=== PATIENT | female | born 1965 | race Caucasian/White ===

== ENCOUNTER → 2017-02-19 | Outpatient (CLI) | payer OTHER ==
[2016-09-27 11:17] VITALS: BP 184/69
[~2017-02-19] MED LIST: ASPI81TA9 PO; CARV3.12 PO; PRAV10TA2 PO; TRAM50TA PO
[2017-02-20 03:08] LABS: THYROXINE 9.7 ug/dL (4.5-12.0)
[2017-02-20 06:12] LABS: ESTRADIOL LEVEL 6.7 pg/mL (.); FSH 23.4 mIU/mL (.); LUTEINIZING HORMONE 13.4 mIU/mL (.)
[2017-02-20 14:26] LABS: FREE T4 1.2 ng/dL (0.76-1.46); THYROID STIM HORMONE (TSH) 1.078 uIU/mL (0.358-3.740)
== END | disposition home or self-care (01) ==
LOC: LAB 16:54
PROVIDERS: ATTEND Obstetrics & Gynecology
DX: E34.9 Endocrine disorder, unspecified (principal)
CPT/HCPCS: 36415; 82670; 83001; 83002; 84436; 84439; 84443; 84480

== ENCOUNTER 2017-04-04 01:41 | Emergency (ER) | payer OTHER ==
[~2017-04-04] VITALS: Ht 165.1 cm; Wt 184.6 kg
[~2017-04-04 01:41] MED LIST changes: +ASPI-612 PO; -ASPI81TA9 PO
[2017-04-04] MEDS ORDERED: DOXY100T PO (02:38)
[2017-04-04] MEDS ORDERED: HYDR-971 PO (02:38)
--- NOTE | 2017-04-04 02:40 | PHYS DOC ---
General Chief Complaint: rash Stated Complaint: INSECT BITE ON STOMACH Time Seen by MD: 01:42 Source: patient Exam Limitations: no limitations Problems: History of Present Illness Initial Comments Pt is 51/F to ED c/o brown recluse bite. Pt states she noted "pimple" itchy/red on right abdomen [address] Gan yesterday due to increased redness and scabbing over initial "pimple" and pt states Dr Gan dx brown recluse spider bite. Labs drawn yesterday by Dr Gan , pt has f/u there 2:30 today for results/further evaluation. Pt came in tonight because rash is hurting, some has spread outside line drawn yesterday by Dr Gan. Other than pain no fever/chills/malaise/myalgias/n/v. No ticks or spiders seen. Td status unknown. Timing/Duration: getting worse (3 days) Severity: moderate Modifying Factors: worse with movement, improves with rest Associated Symptoms: rash, other Allergies: Coded Allergies: No Known Allergies (Verified Allergy, Unknown, 02/23/14) Past Medical History Medical History: other (HTN, HLP, GERD, VIOLA, morbid obesity) Surgical History: noncontributory (munira, CS, appy, EGD) Social History Smoker: quit greater than 1 year Alcohol: none Drugs: none Review of Systems Constitutional: denies chills, denies diaphoresis, denies fever, denies malaise Respiratory: denies cough, denies shortness of breath Cardiovascular: denies chest pain, denies palpitations Gastrointestinal: denies diarrhea, denies nausea, denies vomiting Genitourinary: denies frequency, denies hematuria Musculoskeletal: see HPI, denies back pain, denies joint swelling, denies neck pain Skin: see HPI Psychiatric/Neurological: denies headache, denies numbness, denies paresthesia Physical Exam General Appearance: no apparent distress, obese Ear, Nose, Throat: normal ENT inspection, normal pharynx Neck: non-tender, supple Respiratory: normal breath sounds, no respiratory distress Cardiovascular: normal peripheral pulses, regular rate, rhythm Gastrointestinal: normal bowel sounds, non tender, soft Back: no CVA tenderness, no vertebral tenderness Extremities: non-tender, normal inspection 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 Abx initiated. Pt to f/u Dr Gan today. Departure Time of Disposition: 02:38 Disposition: 01 HOME, SELF-CARE Diagnosis: cellulitis right abdomen Condition: GOOD Patient Instructions: Brown Recluse Spider Bite, [id number], Cellulitis, Easy -to-Read, MRSA Infection, Infant, [id number] Additional Instructions: Please review the patient education materials. I've included information on MRSA (staph) as well as brown recluse bites. Rx: norco 5mg #14, doxycycline Take medications with food. Follow up with Dr Gan today at 2:30 pm as scheduled for recheck. Return to ED with new or changing symptoms. ALFA VAN DO April 04, 2017 02:40
[2017-04-04] MEDS ORDERED: ONDANSETRON ODT 4 MG TAB.RAPDIS PO ONE (03:00)
[2017-04-04] MEDS ORDERED: DOXYCYCLINE HYCLATE 100 MG TABLET PO ONE (03:00)
[2017-04-04] MEDS ORDERED: DIPHTH,PERTUSS(ACELL),TET TOX 0.5 ML DISP.SYRIN. VAX IM ONE (03:00)
[2017-04-04] MEDS ORDERED: MORPHINE SULFATE 10 MG/ML SYRINGE. IM ONE (03:00)
[2017-04-04 03:15] VITALS: BP 130/68
== END 2017-04-04 03:20 | disposition home or self-care (01) ==
LOC: ER 01:41
DX: L03.311 Cellulitis of abdominal wall (principal); I10 Essential (primary) hypertension; E78.5 Hyperlipidemia, unspecified; K21.9 Gastro-esophageal reflux disease without esophagitis; G47.33 Obstructive sleep apnea (adult) (pediatric); E66.01 Morbid (severe) obesity due to excess calories; Z87.891 Personal history of nicotine dependence
CPT/HCPCS: 90471; 90715; 96372; 99284; J2270; Q0162

== ENCOUNTER → 2017-09-29 | Outpatient (CLI) | payer OTHER ==
[~2017-09-29] MED LIST changes: +DOXY100T PO; +HYDR-971 PO
--- NOTE | 2017-09-29 15:44 | RAD ---
DATE: September 29, 2017 EXAM: DIGITAL DIAGNOSTIC BILATERAL HISTORY: Right lateral breast pain. Annual screening of left breast. COMPARISON: March 08, 2011 TECHNIQUE: CC and MLO views of each breast were obtained. All views were repeated to include more breast tissue. The right CC view was repeated twice, there are 9 images total This study was interpreted with the benefit of Computerized Aided Detection (CAD). FINDINGS: The breast parenchyma demonstrates scattered fibroglandular densities, category B. Two probable parenchymal lymph nodes in the upper outer right breast are stable. There is no worrisome mass or area of architectural distortion. There are a few scattered benign calcifications. IMPRESSION: Stable mammogram with benign findings. BI-RADS CATEGORY: 2 BENIGN FINDING RECOMMENDED FOLLOW-UP: 12M 12 MONTH FOLLOW-UP . Recommend clinical discussion/follow-up for this patient's unexplained breast pain. PQRS compliance statement: Patient information was entered into a reminder system with a target due date for the next mammogram. Mammography is a sensitive method for finding small breast cancers, but it does not detect them all and is not a substitute for careful clinical examination. A negative mammogram does not negate a clinically suspicious finding and should not result in delay in biopsying a clinically suspicious abnormality. "Our facility is accredited by the [employer] Mammography Program."
== END | disposition home or self-care (01) ==
LOC: MAMMO 14:51
PROVIDERS: ATTEND Obstetrics & Gynecology
DX: N64.4 Mastodynia (principal); R92.1 Mammographic calcification found on diagnostic imaging of breast; Z72.89 Other problems related to lifestyle
CPT/HCPCS: G0204; 77066

== ENCOUNTER 2018-01-30 23:58 | Observation (INO) | payer OTHER ==
[~2018-01-30] VITALS: Ht 162.6 cm; Wt 177.9 kg
--- NOTE | 2018-01-31 00:06 | ED.ADGEN ---
Past History Past Medical History: Anxiety, GERD, High Cholesterol, Hypertension, Other Past Surgical History: Appendectomy, Cholecystectomy, Smoking: Non-smoker Alcohol Use: None Drug Use: None Adult General Chief Complaint Chief Complaint " .. I ve been having off and on chest pain for the past couple weeks.. but it been constant the past several days... and worse tonight... I do have angina... and I have seen Dr. Kay at [facility]... " HPI HPI Patient is a 52 year old female who presents with above hx and complaints of centralized chest pain which is nonradiating.. Patient describes it as a squeezing heavy feeling. Nothing she does seems to make it better tonight. Pt. rates pain as 8/10. Patient does not smoke. Patient denies any drug use. Patient denies any trauma or ill contacts. Patient does have a history of hypertension. Patient does have a history of morbid obesity. There is a strong family history of [place] with early onset and family members brother and father. Brother at age 49 due to [place]. Patient's primary care is Dr. Gan. Review of Systems Review of Systems Constitutional: Denies fever or chills [] Eyes: Denies change in visual acuity, redness, or eye pain [] HENT: Denies nasal congestion or sore throat [] Respiratory: Denies cough or shortness of breath [] Cardiovascular: No additional information not addressed in HPI [] GI: Denies abdominal pain, nausea, vomiting, bloody stools or diarrhea [] : Denies dysuria or hematuria [] Musculoskeletal: Denies back pain or joint pain [] Integument: Denies rash or skin lesions [] Neurologic: Denies headache, focal weakness or sensory changes [] Endocrine: Denies polyuria or polydipsia [] All other systems were reviewed and found to be within normal limits, except as documented in this note. Family History Family History Early onset coronary artery disease father and brother Current Medications Current Medications Current Medications Medications (Trade) Dose Ordered Sig/Cruz Start Time Stop Time Status Last Admin Dose Admin Sodium Chloride 1,000 ml @ 100 mls/hr Q10H 01/31/18 00:27 01/31/18 10:26 01/31/18 01:58 100 MLS/HR See nursing for home meds Allergies Allergies Allergies Coded Allergies Type Severity Reaction Last Updated Verified No Known Allergies Allergy Unknown 02/23/14 Yes Physical Exam Physical Exam Constitutional: Moderately acute distress, non-toxic appearance. [] HENT: Normocephalic, atraumatic, bilateral external ears normal, oropharynx moist, no oral exudates, nose normal. [] Eyes: PERRLA, EOMI, conjunctiva normal, no discharge. [] Neck: Normal range of motion, no tenderness, supple, no stridor. [] Cardiovascular:Heart rate regular rhythm, no murmur [] Lungs & Thorax: Bilateral breath sounds equal at apexes on auscultation [] Abdomen: Bowel sounds normal, soft, no tenderness, no masses, no pulsatile masses. Morbidly obese. Old surgery scars. Skin: Warm, dry, no erythema, no rash. [] Back: No tenderness, no CVA tenderness. [] Extremities: No tenderness, no cyanosis, no clubbing, ROM intact, ankle edema. [ ] No cording appreciated. Neurologic: Alert and oriented X 3, normal motor function, normal sensory function, no focal deficits noted. [] Psychologic: Affect anxious, judgement normal, mood normal. [] EKG EKG My interpretation EKG shows a sinus rhythm at 82 bpm. No findings acute STEMI with contralateral changes[] Radiology/Procedures Radiology/Procedures My interpretation of chest x-ray shows no free air under the diaphragm. Borderline cardiomegaly. No large pulmonary infiltrate.[] Course & Med Decision Making Course & Med Decision Making Pertinent Labs and Imaging studies reviewed. (See chart for details). Discussed presentation, testing and treatment plan with Dr. Amato. Will admit for further eval. and cardiology consult. [] Final Impression Final Impression 1. Chest pain 2. Accelerated hypertension 3. Morbid obesity[] 4. Problems: Dragon Disclaimer Dragon Disclaimer This electronic medical record was generated, in whole or in part, using a voice recognition dictation system. NICK GALVEZ MD Jan 31, 2018 00:06
[2018-01-31] MEDS ORDERED: IV NORMAL SALINE 1,000ML 1,000 ML IV SCH (00:27)
[2018-01-31] MEDS ORDERED: NITROGLYCERIN OINT 1 GM PACKET. TP ONE (01:00)
[2018-01-31] MEDS ORDERED: ASPIRIN 325 MG TABLET PO ONE (01:00)
[2018-01-31] MEDS ORDERED: MORPHINE SULFATE 10 MG/ML SYRINGE. SQ ONE (01:00)
[2018-01-31] MEDS ORDERED: ENOXAPARIN ** NOTE DOSE ** SYRINGE SQ ONE (01:30)
[2018-01-31 02:14] LABS: BASO # 0.1 x10^3/uL (0.0-0.2); BASO % 1 % (0-3); EOS # 0.2 x10^3/uL (0.0-0.7); EOS % 3 % (0-3); HEMATOCRIT 43.1 % (36.0-47.0); HEMOGLOBIN 14.6 g/dL (12.0-15.5); LYMPH # 2.1 x10^3/uL (1.0-4.8); LYMPH % 26 % (24-48); MEAN CORPUSCULAR HEMOGLOBIN 30 pg (25-35); MEAN CORPUSCULAR HGB CONC 34 g/dL (31-37); MEAN CORPUSCULAR VOLUME 89 fL (79-100); MONO # 0.4 x10^3/uL (0.0-1.1); MONO % 5 % (0-9); NEUT # 5.3 x10^3uL (1.8-7.7); NEUT % 65 % (31-73); PLATELET COUNT 308 x10^3/uL (140-400); RED BLOOD COUNT 4.84 x10^6/uL (3.50-5.40); RED CELL DISTRIBUTION WIDTH 13.6 % (11.5-14.5); WHITE BLOOD COUNT 8.2 x10^3/uL (4.0-11.0)
[2018-01-31 02:17] LABS: BARBITURATES NEG (NEG); BENZODIAZEPINES NEG (NEG); CANNABINOIDS NEG (NEG); COCAINE NEG (NEG); METHADONE NEG (NEG); OPIATES NEG (NEG); PHENCYCLIDINE NEG (NEG)
[2018-01-31 02:19] LABS: BILIRUBIN,URINE NEG (NEG); CLARITY,URINE CLEAR; COLOR,URINE STRAW; GLUCOSE,URINE NEG (NEG)
[2018-01-31 02:20] LABS: BACTERIA,URINE FEW /HPF (0-FEW); NITRITE,URINE NEG (NEG); RBC,URINE OCC /HPF (0-2); SQUAMOUS EPITHELIAL CELL,UR FEW /LPF; UROBILINOGEN,URINE 0.2 mg/dL (0.2 mg/dL); WBC,URINE 0 /HPF (0-4)
[2018-01-31] MEDS ORDERED: OMEP40CA5 PO (02:29)
[2018-01-31] MEDS ORDERED: SERT25TA4 PO (02:29)
[2018-01-31] MEDS ORDERED: LISI40TA PO (02:29)
[2018-01-31 02:31] LABS: AMPHETAMINE/METHAMPHETAMINE NEG (NEG)
[2018-01-31 02:50] LABS: ALBUMIN 3.5 g/dL (3.4-5.0); ALK PHOS 91 U/L (46-116); ALT (SGPT) 28 U/L (14-59); ANION GAP 9 (6-14); AST (SGOT) 21 U/L (15-37); BLOOD UREA NITROGEN 12 mg/dL (7-20); CALCIUM 8.9 mg/dL (8.5-10.1); CARBON DIOXIDE 28 mmol/L (21-32); CHLORIDE 102 mmol/L (98-107); CREATININE 0.9 mg/dL (0.6-1.0); DIRECT BILIRUBIN 0.1 mg/dL (0.0-0.2); GFR 65.5; GLUCOSE 106 mg/dL (70-99); LIPASE 154 U/L (73-393); SODIUM 139 mmol/L (136-145); TOTAL BILIRUBIN 0.3 mg/dL (0.2-1.0); TOTAL PROTEIN 7.9 g/dL (6.4-8.2)
[2018-01-31] MEDS ORDERED: MORPHINE SULFATE 2 MG/ML DISP.SYRIN. IV PRN (03:00)
[2018-01-31] MEDS ORDERED: ONDANSETRON PF 4 MG/2 ML VIAL. IV PRN (03:00)
[2018-01-31 03:05] VITALS: BP 159/93
[2018-01-31] MEDS ORDERED: ANTI-COAG MONITOR BY PHARMACY. MC PRN (03:15)
[2018-01-31] MEDS ORDERED: CARV3.122 PO (05:04)
[2018-01-31] MEDS: NITROGLYCERIN OINT 1 GM PACKET. TP SCH ×2 (05:14→14:00)
[2018-01-31] MEDS ORDERED: traMADol 50 MG TABLET PO PRN (05:15)
[2018-01-31 05:31] VITALS: BP 98/59
--- NOTE | 2018-01-31 05:46 | EKG ---
[address] [address] Test Date: 2018-01-31 Test Time: 00:21:13 Pat Name: IVELISSE PADILLA Department: Room: Gender: F General Office Dispatcher: HAIDER : 1965 Requested By: NICK GALVEZ Order Number: [id number] Reading MD: Measurements Intervals [place] Rate: 82 P: 26 HI: 184 QRS: 47 QRSD: 84 T: 29 QT: 376 QTc: 442 Interpretive Statements SINUS RHYTHM NO SPECIFIC ECG ABNORMALITIES RI6.01 No previous ECG available for comparison
[2018-01-31] MEDS ORDERED: ACET325T9 PO (06:37)
[2018-01-31] MEDS ORDERED: ASPI1TAB31 PO (06:37)
[2018-01-31] MEDS ORDERED: ACETAMINOPHEN 325 MG TABLET PO PRN (06:45)
[2018-01-31] MEDS ORDERED: PANTOPRAZOLE 40 MG TABLET. PO SCH (07:30)
[2018-01-31] MEDS ORDERED: SERTRALINE 25 MG TABLET. PO SCH (08:00)
[2018-01-31] MEDS ORDERED: ASPIRIN 81 MG TAB.CHEW PO SCH (08:00)
[2018-01-31] MEDS ORDERED: CARVEDILOL 3.125 MG TABLET PO SCH (08:00)
[2018-01-31] MEDS ORDERED: LISINOPRIL 20 MG TABLET PO SCH (08:00)
--- NOTE | 2018-01-31 08:30 | RAD ---
Indication: Chest pain and pressure for one week. Technique: Portable AP upright chest x-ray Comparison: Previous study from 09/26/2016. Findings: Heart is normal in size. Lungs are clear. Stable calcified granuloma projecting over the left lower lung zone. No pneumothorax or pleural effusion. Visualized bony thorax is within normal limits. Impression: No acute cardiopulmonary process.
[2018-01-31] MEDS ORDERED: NYSTATIN TOPICAL POWDER 30GM BOTTLE. TP SCH (09:00)
[2018-01-31] MEDS ORDERED: ASPIRIN ENTERIC COATED 81 MG TABLET.DR. PO SCH (09:00)
[2018-01-31] MEDS ORDERED: ENOXAPARIN ** NOTE DOSE ** SYRINGE SQ SCH (09:00)
[2018-01-31 10:57] LABS: THYROID STIM HORMONE (TSH) 1.33 uIU/mL (0.358-3.740)
[2018-01-31 11:33] VITALS: BP 116/72
--- NOTE | 2018-01-31 14:47 | PDOC2 ---
CARDIAC CONSULT DATE OF CONSULT Date Of Consult DATE: 01/31/18 TIME: 14:39 REASON FOR CONSULT Reason for Consult Chest pain REFERRING PHYSICIAN Referring Physician Dr. Amato SOURCE Source: Patient HPI History of Present Illness The patient is a 52-year-old female who presented to the emergency room with chief complaints of episodic periods of chest pressure over the past several weeks. The patient's initial EKG was a sinus rhythm with no ischemic changes. Troponins have been normal 2. She is feeling much better this morning her pain has resolved. The patient has reported history of hyperlipidemia and is on pravastatin 10 mg a day but her LDL is severely elevated at 199 with an HDL of 59. Additionally she weighs 392 pounds and has a history of gastroesophageal reflux disease for which she is treated with omeprazole. Overall she reports feeling much better this morning. PAST MEDICAL HISTORY Cardiovascular: HTN, hyperipidemia GI: GERD PAST SURGICAL HISTORY Past Surgical History: Appendectomy, Cholecystectomy, FAMILY HISTORY Family History: Coronary Artery Disease SOCIAL HISTORY Smoke: No ALCOHOL: none CURRENT MEDICATIONS Current Medications Current Medications Sodium Chloride 1,000 ml @ 100 mls/hr Q10H IV Last administered on 01/31/18at 01:58; Start 01/31/18 at 00:27; Stop 01/31/18 at 10:26; Status DC Nitroglycerin (Nitro-Bid Oint) 1 inch 1X ONCE TP Last administered on at 01:58; Start 01/31/18 at 01:00; Stop 01/31/18 at 01:01; Status DC Aspirin (Alec Aspirin) 325 mg 1X ONCE PO Last administered on 01/31/18at 01:58 ; Start 01/31/18 at 01:00; Stop 01/31/18 at 01:01; Status DC Morphine Sulfate (Morphine 10mg Syringe) 10 mg 1X ONCE SQ Last administered on 01/31/18at 01:58; Start 01/31/18 at 01:00; Stop 01/31/18 at 01:01; Status DC Enoxaparin Sodium (Lovenox 150mg Syringe) 150 mg 1X ONCE SQ Last administered on 01/31/18at 01:57; Start 01/31/18 at 01:30; Stop 01/31/18 at 01:31; Status DC Ondansetron HCl (Zofran) 4 mg PRN Q4HRS PRN IV NAUSEA/VOMITING; Start 01/31/18 at 03:00; Stop 02/01/18 at 02:59 Morphine Sulfate (Morphine 2mg Syringe) 2 mg PRN Q2HR PRN IV PAIN; Start at 03:00; Stop 02/01/18 at 02:59 Enoxaparin Sodium (Lovenox 150mg Syringe) 150 mg Q12HR SQ Last administered on 01/31/18at 08:56; Start 01/31/18 at 09:00 Aspirin (Children'S Aspirin) 81 mg DAILYWBKFT PO ; Start 01/31/18 at 08:00 Nitroglycerin (Nitro-Bid Oint) 1 inch Q8HRS TP ; Start 01/31/18 at 06:00 Info (Anti-Coagulation Monitoring By Pharmacy) 1 each PRN DAILY PRN MC SEE COMMENTS; Start 01/31/18 at 03:15 Aspirin (Aspirin Enteric Coated) 81 mg DAILY PO Last administered on 01/31/18at 08:58; Start 01/31/18 at 09:00 Carvedilol (Coreg) 3.125 mg BIDWMEALS PO Last administered on 01/31/18at 08:58; Start 01/31/18 at 08:00 Sertraline HCl (Zoloft) 25 mg DAILY08 PO Last administered on 01/31/18at 08:58; Start 01/31/18 at 08:00 Tramadol HCl (Ultram) 50 mg PRN Q6HRS PRN PO MODERATE PAIN; Start 01/31/18 at 05:15 Lisinopril (Prinivil) 40 mg DAILY08 PO Last administered on 01/31/18at 08:58; Start 01/31/18 at 08:00 Pantoprazole Sodium (Protonix) 40 mg DAILYAC PO Last administered on 01/31/18at 08:58; Start 01/31/18 at 07:30 Atorvastatin Calcium (Lipitor) 5 mg QHS PO ; Start 01/31/18 at 21:00 Nystatin (Nystop) 1 ming BID TP Last administered on 01/31/18at 08:57; Start at 09:00 Acetaminophen (Tylenol) 650 mg PRN Q6HRS PRN PO HEADACHE Last administered on at 07:03; Start 01/31/18 at 06:45 Active Scripts Active Reported Tylenol (Acetaminophen) 325 Mg Tablet 650 Mg PO Q6HRS PRN Lisinopril 40 Mg Tablet 40 Mg PO DAILY08 Sertraline Hcl 25 Mg Tablet 25 Mg PO DAILY08 Omeprazole 40 Mg Capsule.dr 40 Mg PO DAILY08 Aspirin Ec (Aspirin) 81 Mg Tablet.dr 81 Mg PO DAILY Coreg (Carvedilol) 3.125 Mg Tablet 3.125 Mg PO BIDWMEALS Pravastatin Sodium 10 Mg Tablet 1 Tab PO QHS Tramadol Hcl (Tramadol HCl) 50 Mg Tablet 50 Mg PO PRN Q6HRS ALLERGIES Allergies: Coded Allergies: No Known Allergies (Verified Allergy, Unknown, 02/23/14) ROS General: YES: Fatigue Respiratory: YES: SOB with excertion Cardiovascular: yes: Chest Pain PHYSICAL EXAM General: No acute distress HEENT: Atraumatic Lungs: Clear to auscultation Heart: Regular rate Abdomen: Normal bowel sounds VITALS Vital Signs Vital Signs Date Time Temp Pulse Resp B/P (MAP) Pulse Ox O2 Delivery O2 Flow Rate FiO2 01/31/18 11:33 97.4 71 22 116/72 (87) 98 Room Air LABS LABS Laboratory Tests Test 01/31/18 01:45 01/31/18 01:55 01/31/18 06:32 Urine Collection Type Unknown Urine Color Straw Urine Clarity Clear Urine pH 5.0 Urine Specific [place] <=1.005 Urine Protein Neg (NEG-TRACE) Urine Glucose (UA) Neg mg/dL (NEG) Urine Ketones (Stick) Neg mg/dL (NEG) Urine Blood Small (NEG) Urine Nitrite Neg (NEG) Urine Bilirubin Neg (NEG) Urine Urobilinogen Dipstick 0.2 mg/dL (0.2 mg/dL) Urine Leukocyte Esterase Neg (NEG) Urine RBC Occ /HPF (0-2) Urine WBC 0 /HPF (0-4) Urine Squamous Epithelial Cells Few /LPF Urine Bacteria Few /HPF (0-FEW) Urine Opiates Screen Neg (NEG) Urine Methadone Screen Neg (NEG) Urine Barbiturates Neg (NEG) Urine Phencyclidine Screen Neg (NEG) Urine Amphetamine/Methamphetamine Neg (NEG) Urine Benzodiazepines Screen Neg (NEG) Urine Cocaine Screen Neg (NEG) Urine Cannabinoids Screen Neg (NEG) Urine Ethyl Alcohol Neg (NEG) White Blood Count 8.2 x10^3/uL (4.0-11.0) Red Blood Count 4.84 x10^6/uL (3.50-5.40) Hemoglobin 14.6 g/dL (12.0-15.5) Hematocrit 43.1 % (36.0-47.0) Mean Corpuscular Volume 89 fL (79-100) Mean Corpuscular Hemoglobin 30 pg (25-35) Mean Corpuscular Hemoglobin Concent 34 g/dL (31-37) Red Cell Distribution Width 13.6 % (11.5-14.5) Platelet Count 308 x10^3/uL (140-400) Neutrophils (%) (Auto) 65 % (31-73) Lymphocytes (%) (Auto) 26 % (24-48) Monocytes (%) (Auto) 5 % (0-9) Eosinophils (%) (Auto) 3 % (0-3) Basophils (%) (Auto) 1 % (0-3) Neutrophils # (Auto) 5.3 x10^3uL (1.8-7.7) Lymphocytes # (Auto) 2.1 x10^3/uL (1.0-4.8) Monocytes # (Auto) 0.4 x10^3/uL (0.0-1.1) Eosinophils # (Auto) 0.2 x10^3/uL (0.0-0.7) Basophils # (Auto) 0.1 x10^3/uL (0.0-0.2) Prothrombin Time 10.1 SEC (9.4-11.4) Prothromb Time International Ratio 1.0 (0.9-1.1) Activated Partial Thromboplast Time 24 SEC (23-33) D-Dimer (Dilcia) 0.41 mg/L (0.00-0.50) Sodium Level 139 mmol/L (136-145) Potassium Level 4.0 mmol/L (3.5-5.1) Chloride Level 102 mmol/L (98-107) Carbon Dioxide Level 28 mmol/L (21-32) Anion Gap 9 (6-14) Blood Urea Nitrogen 12 mg/dL (7-20) Creatinine 0.9 mg/dL (0.6-1.0) Estimated GFR (Cockcroft-Gault) 65.5 Glucose Level 106 mg/dL (70-99) Calcium Level 8.9 mg/dL (8.5-10.1) Magnesium Level 2.0 mg/dL (1.8-2.4) Total Bilirubin 0.3 mg/dL (0.2-1.0) Direct Bilirubin 0.1 mg/dL (0.0-0.2) Aspartate Amino Transf (AST/SGOT) 21 U/L (15-37) Alanine Aminotransferase (ALT/SGPT) 28 U/L (14-59) Alkaline Phosphatase 91 U/L (46-116) Creatine Kinase 60 U/L (26-192) Creatine Kinase MB (Mass) < 0.5 ng/mL (0.0-3.6) Creatine Kinase MB Relative Index 0.8 % (0-4) Troponin I Quantitative < 0.017 ng/mL (0-0.055) < 0.017 ng/mL (0-0.055) AU-Vtx-F-Type Natriuretic Peptide 36 pg/mL (0-124) Total Protein 7.9 g/dL (6.4-8.2) Albumin 3.5 g/dL (3.4-5.0) Triglycerides Level 193 mg/dL (0-150) Cholesterol Level 296 mg/dL (0-200) LDL Cholesterol, Calculated 199 mg/dL (0-100) VLDL Cholesterol, Calculated 38 mg/dL (0-40) Non-HDL Cholesterol Calculated 237 mg/dL (0-129) HDL Cholesterol 59 mg/dL (40-60) Cholesterol/HDL Ratio 5.0 Lipase 154 U/L (73-393) Thyroid Stimulating Hormone (TSH) 1.330 uIU/mL (0.358-3.740) IMAGES IMAGES Chest x-ray shows no acute changes. EKG EKG EKG showed a sinus rhythm with no ischemic changes. ASSESSMENT/PLAN Assessment/Plan 1. Chest pain. Pain has largely resolved. Troponins have been normal. EKG shows no ischemic changes. In this setting would concentrate on risk factors. Would consider changing pravastatin to Lipitor at high dose at 40-80 mg a day. This may need to be reviewed with the patient's primary physician. With her weight of 392 pounds believe her pain this is most likely secondary to GI etiologies and the patient does have a history of gastroesophageal reflux disease. However would work the patient up as an outpatient with echocardiogram and determine if we can find a systemic able to do a stress test with her weight of approximately 400 pounds. We'll contact the patient by phone next week. 2. Hyperlipidemia. Elevated LDL at 199 as above. Adjustment of statins either in the hospital or through her primary service. 3. Gastroesophageal reflux disease. Continue on omeprazole. 4. Hypertension. Improved. We will continue present medications. 5. Severe morbid obesity. Discussed with the patient. Hopefully outpatient evaluation for weight loss. Thank you for allowing us to participate in the care of your patient. KIT GOODMAN MD Jan 31, 2018 14:47
[2018-01-31] MEDS ORDERED: PRAV40TA2 PO (15:36)
--- NOTE | 2018-01-31 16:37 | SSS ---
ADMIT DATE: 01/31/2018 HISTORY OF PRESENT ILLNESS: The patient is a 52-year-old female patient who basically came to the Emergency Room with chief complaint of chest pain that has been going on for a week now, not precipitated by exertion and not associated with nausea, vomiting, no diaphoresis and basically, she was evaluated in the Emergency Room. She had an EKG, which showed that she was in sinus rhythm with no ischemic changes. Her troponin done twice and that troponin was less than 0.017. She was evaluated by Dr. Eden and decision was made to evaluate her as an outpatient with an echocardiogram and also a stress test possible. PAST MEDICAL HISTORY: Significant for hypertension, hyperlipidemia, gastroesophageal reflux disease, severe osteoarthritis of her knees, hips and lower back. She has also morbid obesity, obstructive sleep apnea. PAST SURGICAL HISTORY: Significant for appendectomy, cholecystectomy, total abdominal hysterectomy and bilateral salpingo-oophorectomy. ALLERGIES: She has no known drug allergies. MEDICATIONS: She is currently on following medications: She is on Tylenol 650 mg every 6 hours, aspirin 81 mg once a day, carvedilol 3.125 mg twice a day with meals, lisinopril 40 mg once a day, omeprazole 40 mg once a day, pravastatin 10 mg at bedtime, sertraline 25 mg daily and tramadol 50 mg every 6 hours as needed. FAMILY HISTORY: Her brother at age of 49 with sudden cardiac after undergoing coronary artery bypass graft surgery. Her father is still alive in his 70s and has coronary artery disease and coronary artery bypass graft surgery. Her mother is still alive in her 70s and seemed to be in relatively good health. SOCIAL HISTORY: She is , has 3 daughters. She is an ex-smoker, quit about 15 years ago. She drinks alcohol occasionally. Does not use drugs. She is currently disabled. REVIEW OF SYSTEMS: As per history of present illness. PHYSICAL EXAMINATION GENERAL: When I examined her, she looked well and was clearly in no apparent respiratory distress, pale, but no jaundice, cyanosis or thyromegaly. No jugular venous distention. No limb edema. VITAL SIGNS: Her heart rate was 79, blood pressure was 158/85, temperature was 97, respiratory rate was 20, and oxygen saturation was 96% on room air. HEENT: Showed normocephalic, atraumatic. NECK: Supple. HEART: Showed normal first and second heart sounds with no gallop, rub or murmur. CHEST: Clear to auscultation. No crepitation or rhonchi. ABDOMEN: Distended, soft, nontender. No guarding or rigidity. No organomegaly. Hernial orifices intact. Bowel sounds normal. NEUROLOGIC: She is awake, alert, responding appropriately. Cranial nerves intact. She moves extremities without difficulty. She ambulates without assistance or assistive devices. LABORATORY DATA: Showed a white cell count of 8200, hemoglobin 14.6, hematocrit 43, MCV 89 and platelet count 208,000. Her prothrombin time was 10.1, INR 1, aPTT was 24. D-dimer was 0.41. Her chemistry showed a serum sodium 139, potassium 4, chloride 102, bicarbonate 28, anion gap of 9, BUN 12, creatinine 0.9, estimated GFR was 66 mL per minute. Glucose 106, calcium was 8.9, magnesium 2. Total bilirubin, AST, ALT, alkaline phosphatase were normal. Total protein was 7.9. Albumin was 3.5. She has 2 sets of cardiac enzymes that showed troponin to be less than 0.017, serum triglycerides were 193, total cholesterol 296, LDL was 199, VLDL was 38, and HDL cholesterol was 59, the ratio was 5. Serum lipase was 154 and TSH was 1.330. Urinalysis was unremarkable and toxicology screen was negative. Her chest x-ray showed the heart is normal size. Lungs are clear. Stable calcified granulomas projecting over the left lower lung zone, no pneumothorax or pleural effusion, visualized bony thoraxes are within normal limits. ASSESSMENT AND PLAN: The patient was evaluated by Dr. Eden and basically he recommended evaluating the patient as an outpatient with an echocardiogram and possible stress test and will arrange for also possibility of a nuclear stress test. FINAL DISCHARGE DIAGNOSES: 1. Chest pain, likely due to gastroesophageal reflux disease. 2. Hyperlipidemia. 3. Gastroesophageal reflux disease. 4. Hypertension. 5. Severe morbid obesity with severe advanced degenerative joint disease. CULLEN OVIEDO MD DR: SP/jessica JOB#: [id number] / [id number]
[2018-01-31] MEDS ORDERED: ATORVASTATIN CALCIUM 10 MG TABLET. PO SCH (21:00)
== END 2018-01-31 16:45 | disposition home or self-care (01) ==
LOC: ER 23:58 → UNDOADMIN 01-31 00:50 → INTOOBSV 01-31 00:50 → 1 SOUTH 01-31 00:50
PROVIDERS: ADMIT Internal Medicine; ATTEND Internal Medicine
DX: R07.89 Other chest pain (principal); I10 Essential (primary) hypertension; E78.5 Hyperlipidemia, unspecified; K21.9 Gastro-esophageal reflux disease without esophagitis; E66.01 Morbid (severe) obesity due to excess calories; E78.00 Pure hypercholesterolemia, unspecified; F10.10 Alcohol abuse, uncomplicated; M19.90 Unspecified osteoarthritis, unspecified site; M17.10 Unilateral primary osteoarthritis, unspecified knee; G47.33 Obstructive sleep apnea (adult) (pediatric); Z87.891 Personal history of nicotine dependence; Z82.49 Family history of ischemic heart disease and other diseases of the circulatory system
CPT/HCPCS: 36415; 71045; 80048; 80061; 80076; 80307; 81001; 82553; 83690; 83735; 83880; 84443; 84484; 85025; 85379; 85610; 85730; 93005; 96360; 96361; 96372; 99285; G0378; J1650; J2270; G0379; G0479; J7030

== ENCOUNTER → 2018-02-17 | Outpatient (CLI) | payer OTHER ==
[2018-01-31 11:33] VITALS: BP 116/72
[~2018-02-17] MED LIST changes: +ACET325T9 PO; +ASPI1TAB31 PO; +CARV3.122 PO; +LISI40TA PO; +OMEP40CA5 PO; +PRAV40TA2 PO; +SERT25TA4 PO
--- NOTE | 2018-02-17 16:21 | CARD ---
MR#: [id number] Date of Study: 02/17/2018 Ordering Physician: CHICA العراقي, Referring Physician: CHICA العراقي, Tech: CHIVO Gallego APPROVED REPORT EXAM: Two-dimensional and M-mode echocardiogram with Doppler and color Doppler. Other Information Quality : Technically Limited Technically limited study due to body habitus. INDICATION Chest Pain 2D DIMENSIONS Left Atrium(2D)4.5 (1.6-4.0cm)Aortic Root(2D)3.0 (2.0-3.7cm) M-Mode DIMENSIONS IVSd1.20 (0.7-1.1cm)LVDd4.10 (4.0-5.6cm) PWd1.30 (0.7-1.1cm)LVDs2.70 (2.0-3.8cm) Aortic Valve AoV Peak Santiago.183.6cm/Brianda Peak GR.13.5mmHg LVOT Peak Santiago.97.8cm/s Mitral Valve MV E Ikhodnjx64.0cm/sMV DECEL [id number] MV A Zphbxsmx90.0cm/sE/A Ratio1.0 Tricuspid Valve TR P. [id number] [id number] TR Peak Gr.[id number] LEFT VENTRICLE Technically difficult study. The left ventricle is normal size. There is mild concentric left ventric ular hypertrophy. The left ventricular systolic function is normal and the ejection fraction is withi n normal range. The Ejection Fraction is 55-60%. There is normal LV segmental wall motion. RIGHT VENTRICLE The right ventricle is normal size. There is normal right ventricular wall thickness. The right ventr icular systolic function is normal. ATRIA The left atrium is mildly dilated. The right atrium size is normal. AORTIC VALVE The aortic valve is not well visualized. Doppler and Color Flow revealed no significant aortic regurg itation. There is no significant aortic valvular stenosis. MITRAL VALVE The mitral valve is not well visualized. There is no mitral valve stenosis. Doppler and Color Flow re vealed no mitral valve regurgitation noted. TRICUSPID VALVE The tricuspid valve is not well visualized. Doppler and Color Flow revealed no tricuspid valve regurg itation noted. PULMONIC VALVE The pulmonic valve is not well visualized. Doppler and Color Flow revealed no pulmonic valvular regur gitation. There is no pulmonic valvular stenosis. GREAT VESSELS The aortic root is normal in size. There are limited subcostal views. Not able to visualize the IVC. PERICARDIAL EFFUSION There is no pleural effusion. There is no evidence of significant pericardial effusion. Critical Notification Critical Value: No <Conclusion> Technically difficult study. The left ventricle is normal size. The left ventricular systolic function is normal and the ejection fraction is within normal range. The Ejection Fraction is 55-60%. There is mild concentric left ventricular hypertrophy. There is no significant aortic valvular stenosis. Doppler and Color Flow revealed no significant aortic regurgitation. Doppler and Color Flow revealed no mitral valve regurgitation noted. Doppler and Color Flow revealed no tricuspid valve regurgitation noted. There is no evidence of significant pericardial effusion. Signed by : Yahir Martinez MD Electronically Approved : 02/17/2018 16:21:13
== END | disposition home or self-care (01) ==
LOC: ECHO 10:48
PROVIDERS: ATTEND Internal Medicine Cardiovascular Disease
DX: I11.0 Hypertensive heart disease with heart failure (principal); I50.9 Heart failure, unspecified; E78.5 Hyperlipidemia, unspecified; E78.00 Pure hypercholesterolemia, unspecified; F32.9 Major depressive disorder, single episode, unspecified; R07.89 Other chest pain; Z87.891 Personal history of nicotine dependence
CPT/HCPCS: 93306